=== PATIENT | male | born 1940 | race Caucasian/White ===

== ENCOUNTER 2017-08-06 07:29 | Emergency (ER) | payer MEDICARE, BC ==
[2017-08-06 07:55] VITALS: BP 135/77
--- NOTE | 2017-08-06 08:59 | EDM.PDOC ---
ED HPI GENERAL MEDICAL PROBLEM - General Chief Complaint: ENT Problem Stated Complaint: FACIAL INJURIES Time Seen by Provider: 08/06/17 08:42 Source of Information: Reports: Patient History Limitations: Reports: No Limitations - History of Present Illness INITIAL COMMENTS - FREE TEXT/NARRATIVE: The patient states that he got up to get a drink of water, went to the kitchen, drank his water, then as he was exiting, fell, around 03:30 this morning. He states that he found himself on the carpeted floor in a prone position with a sore nose, an abrasion to his face, and bilateral rib pain. He states that his neck is sore, but he has no tingling, numbness, or weakness anywhere. He has a slight headache. He states that he does not know how he fell. He doesn't believe that he tripped , but he states that he had no symptoms such as lightheadedness or vertigo prior to the fall. No prior similar symptoms. The patient's PCP is Rahel Jason. Chest Pain Score (Numeric/FACES): 6 - Related Data Allergies Allergy/AdvReac Type Severity Reaction Status Date / Time No Known Allergies Allergy Verified 04/03/15 11:41 Home Meds: Home Meds Cholecalciferol (Vitamin D3) [D3-2000] 1,000 mg PO DAILY 09/06/14 [History] Dicyclomine [Bentyl] 20 mg PO DAILY PRN 09/06/14 [History] Glimepiride 4 mg PO DAILY PRN 09/06/14 [History] Hydrochlorothiazide 12.5 mg PO DAILY 09/06/14 [History] Metoprolol Tartrate [Lopressor] 50 mg PO BID 09/06/14 [History] Multivitamin with Minerals [Multiple Vitamin] 1 tab PO DAILY 09/06/14 [History] amLODIPine [Norvasc] 5 mg PO DAILY 09/06/14 [History] atorvaSTATin [Lipitor] 40 mg PO DAILY 09/06/14 [History] metFORMIN [Glucophage] 500 mg PO DAILY 09/06/14 [History] Albuterol Sulfate [Proair Respiclick] 90 mcg IH Q4HR PRN 12/18/14 [History] Aspirin [Halfprin] 81 mg PO DAILY 12/18/14 [History] Ferrous Sulfate 325 mg PO WITHBREAKFAST 12/18/14 [History] Insulin Glargine,Hum.Rec.Anlog [Lantus Solostar] 23 units SQ BEDTIME 12/18/14 [ History] Linagliptin [Tradjenta] 5 mg PO QAM 12/18/14 [History] Losartan [Cozaar] 100 mg PO QAM 12/18/14 [History] Fish Oil/[place]-3 Fatty Acids [Fish Oil] 1,000 each PO DAILY 12/20/14 [History] Past Medical History HEENT History: Reports: Allergic Rhinitis, Impaired Vision Cardiovascular History: Reports: CAD, High Cholesterol, Hypertension Respiratory History: Reports: Asthma Gastrointestinal History: Reports: Diverticulosis, GERD Genitourinary History: Reports: Chronic Renal Insuffiency, Renal Calculus Musculoskeletal History: Reports: Arthritis Psychiatric History: Reports: Depression Endocrine/Metabolic History: Reports: Diabetes, Type II, Obesity/BMI 30+ - Past Surgical History HEENT Surgical History: Reports: Oral Surgery ([place] teeth extraction), Tonsillectomy Cardiovascular Surgical History: Reports: Coronary Artery Bypass (x 6 vessels, ), Coronary Artery Stent GI Surgical History: Reports: Colonoscopy Musculoskeletal Surgical History: Reports: Arthroscopic Knee (right), Carpal Tunnel (right) Social & Family History - Tobacco Use Smoking Status *Q: Never Smoker Second Hand Smoke Exposure: No - Caffeine Use Caffeine Use: Reports: None - Alcohol Use Alcohol Use History: Yes Alcohol Use Frequency: Rarely - Recreational Drug Use Recreational Drug Use: No - Living Situation & Occupation Living situation: Reports: , with Family (Son) Occupation: Retired ED ROS GENERAL - Review of Systems Review Of Systems: ROS reveals no pertinent complaints other than HPI. ED EXAM, GENERAL - Physical Exam Exam: See Below Exam Limited By: No Limitations General Appearance: Alert, WD/WN, No Apparent Distress Eye Exam: Bilateral Eye: EOMI, Normal Inspection, PERRL Ears: Normal External Exam, Normal Canal, Hearing Grossly Normal, Normal TMs Nose: Normal Inspection, Nasal Tenderness, Nasal Swelling, Other (Dried blood both nostrils. No septal hematoma.). No: Nasal Deformity Throat/Mouth: Normal Inspection, Normal Lips, Normal Voice, No Airway Compromise Head: Atraumatic, Normocephalic Neck: Other (Cervical collar placed early in patients ED visit) Respiratory/Chest: No Respiratory Distress, Lungs Clear, Normal Breath Sounds, No Accessory Muscle Use, Other (tenderness to palpation of the bilateral lateral chest. No palpable crepitus.). No: Crackles, Rhonchi, Wheezing, Pleural Rub Cardiovascular: Normal Peripheral Pulses, Regular Rate, Rhythm, No Gallop, No JVD, No Murmur, No Rub Peripheral Pulses: 3+: Radial (L), Radial (R) GI/Abdominal: Normal Bowel Sounds, Soft, Non-Tender, No Organomegaly, No Distention, No Abnormal Bruit, No Mass, Other (Obese) (Male) Exam: Deferred Rectal (Males) Exam: Deferred Back Exam: Normal Inspection, Full Range of Motion, NT Extremities: Normal Inspection, Normal Range of Motion, Normal Capillary Refill , Other (Trace pretibial edema bilaterally. Hyperpigmentation of both legs, consistent with chronic venous stasis changes, noted.) Neurological: Alert, Oriented, CN II-XII Intact, Normal Cognition, No Motor/ Sensory Deficits Psychiatric: Normal Affect Skin Exam: Warm, Dry, Intact, Normal Color, No Rash EKG INTERPRETATION EKG Date: 08/06/17 Time: 10:35 Rhythm: NSR Rate (Beats/Min): 69 [place]: Normal P-Wave: Present QRS: Normal ST-T: Normal QT: Normal Comparison: No Change (09/06/2014) Course - Vital Signs Last Recorded V/S: Last Vital Signs Temp 36.4 C 08/06/17 07:50 Pulse 67 08/06/17 07:50 Resp 22 H 08/06/17 07:50 BP 135/77 08/06/17 07:50 Pulse Ox 95 08/06/17 07:50 Orthostatic Blood Pressure [ 119/71 Standing] Orthostatic Blood Pressure [ 132/73 Supine] - Orders/Labs/Meds Labs: Laboratory Tests 08/06/17 08/06/17 08/06/17 Range/Units 10:50 10:50 10:50 WBC 18.23 H (4.23-9.07) K/mm3 RBC 5.00 (4.63-6.08) M/mm3 Hgb 15.0 (13.7-17.5) gm/L Hct 44.1 (40.1-51.0) % MCV 88.2 (79.0-92.2) fl MCH 30.0 (25.7-32.2) pg MCHC 34.0 (32.2-35.5) g/dl RDW Std Deviation 45.9 H (35.1-43.9) fL Plt Count 301 (163-337) K/mm3 MPV 9.8 (9.4-12.3) fl Neutrophils % (Manual) 85 H (40-60) % Band Neutrophils % 0 (0-10) % Lymphocytes % (Manual) 11 L (20-40) % Atypical Lymphs % 0 % Monocytes % (Manual) 3 (2-10) % Eosinophils % (Manual) 1 (0.8-7.0) % Basophils % (Manual) 0 L (0.2-1.2) Platelet Estimate Adequate RBC Morph Comment Normal PT 10.7 (9.5-12.1) SECONDS INR 0.98 APTT 25 (24-31) SECONDS D-Dimer, Quantitative 1.35 H (0.19-0.50) mg/L Sodium 132 L (136-145) mEq/L Potassium 4.9 (3.5-5.1) mEq/L Chloride 95 L (98-107) mEq/L Carbon Dioxide 28 (21-32) mEq/L Anion Gap 13.9 (5-15) BUN 43 H (7-18) mg/dL Creatinine 2.0 H (0.7-1.3) mg/dL Est Cr Clr Drug Dosing 32.44 mL/min Estimated GFR (MDRD) 33 (>60) mL/min BUN/Creatinine Ratio 21.5 H (14-18) Glucose 474 H (83-115) mg/dL Calcium 9.4 (8.5-10.1) mg/dL Magnesium 2.1 (1.8-2.4) mg/dl Total Bilirubin 0.4 (0.2-1.0) mg/dL AST 37 (15-37) U/L ALT 59 (16-63) U/L Alkaline Phosphatase 107 (46-116) U/L Troponin I < 0.017 (0.00-0.056) ng/mL Total Protein 7.6 (6.4-8.2) g/dl Albumin 3.2 L (3.4-5.0) g/dl Globulin 4.4 gm/dL Albumin/Globulin Ratio 0.7 L (1-2) - Re-Assessments/Exams Free Text/Narrative Re-Assessment/Exam: 08/06/17 08:58 As the patient is complaining of neck pain and a slight headache, and does not know the mechanism of his fall, I have asked the nurse to place a cervical collar. In the meantime, I have ordered a CT scan of the patient's head and cervical spine, along with a chest radiograph. 08/06/17 09:05 2-view chest radiograph reviewed. Cardiac silhouette is within normal limits. No pulmonary vascular congestion. No pleural effusion seen. No focal infiltrate , however, there does appear to be atelectasis at the left base. No rib fractures identified. No pneumothorax. Sternotomy wires and cardiac clips incidentally noted. Formal read per the Radiologist pending. 08/06/17 09:40 CT of the head without contrast is read by Dr. Mock as: 1. Sinus disease as noted above suspicious for acute sinusitis. 2. Nasal bone fracture with mild displacement. Please correlate if patient has acute symptoms or whether this is chronic. 3. Senescent change as noted above. 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 4. No acute intracranial abnormality is identified. CT of thcervical spineut contrast is read by Dr. Mock as: 1. Degenerative change as noted above. Nothing acute is seen on CT study of the cervical spine. 08/06/17 10:32 The patient's neck was examined. He has no tenderness to palpation, and no pain is elicited with FROM. The cervical collar was removed. The cause of his syncope , however, is still unclear, therefore I have added bloodwork, an ECG, and orthostatic blood pressure measurements. 08/06/17 11:35 The patient is not orthostatic. 08/06/17 12:47 Test results discussed with the patient. The patient's BUN/Cr are elevated at 43 /2.0, which is chronic when compared to prior chemistry panels, and is likely responsible for his modestly elevated D-dimer of 1.35. His blood glucose is elevated at 474. I offered to treat him with insulin, however, the patient would prefer to do that on his own, at home. His WBC count is elevated at 18.23 , but with 0% bandemia, and no sign of an infection was found. This appears to represent demargination. The remainder of the patient's workup is negative, and does not explain the cause of his syncope. I will discharge him home with a referral to the ENT Dr. Jones, for reevaluation of his nasal fracture, in about 1-2 weeks. Departure - Departure Time of Disposition: 12:50 Disposition: Home, Self-Care 01 Condition: Fair Clinical Impression: Syncope, Nasal bone fracture, Hyperglycemia due to type 2 diabetes mellitus, Chronic kidney disease, Chest wall contusion - Discharge Information Instructions: Nasal Fracture, [id number], Hyperglycemia, [id number], Syncope, [id number] Referrals: Rahel Jason NP [Primary Care Provider] - Amador Jones MD [Ordering Only Provider] - Forms: ED Department Discharge Additional Instructions: You were seen in the emergency room after passing out at home, falling onto the floor. Workup in the ER included blood work, a chest x-ray, a CT scan of your head, a CT scan of your cervical spine, positional blood pressure checks, and an ECG. Your workup found that you have a broken nose, and your blood sugar was elevated at 474. The remainder of your workup was unremarkable, and does not explain the cause of your passing out. No broken ribs were found. You do not have a blood clot in your lungs. You have not suffered a heart attack. You are not dry. You are not anemic. No significant electrolyte abnormalities were found. You were offered insulin for your blood sugar, but you declined. No treatment of your broken nose is indicated today, however, we do recommend that you follow-up with the Ear, Nose, and Throat Dr. Amador Jones in 1-2 weeks, for reevaluation and possible setting of your nose bones. Take [id number] ibuprofen, 2-3 tablets (400-600 mg) every 8 hours, as needed for pain. If any other problems, please do not hesitate to return to the ER.
--- NOTE | 2017-08-06 09:29 | CT ---
CT cervical spine Technique: Multiple axial sections were obtained from above C1 inferiorly to the top of T2. Reconstructed sagittal and coronal images were reviewed. Comparison: No prior cervical spine imaging. Findings: Severe disc space narrowing is noted at C5-6 and C6-7. Posterior osteophytes are seen as well as mild anterior osteophytes at both these levels. Degenerative change is noted within the uncovertebral joints at both these levels. Other disc spaces are preserved. Degenerative change noted between the dens and anterior arch of C1. Posterior skull base is intact. Mild left-sided neural foraminal stenosis is noted at C5-6 with moderate right-sided neural foraminal stenosis being seen at this same level. Other neural foramina are felt to be patent. No fracture or abnormal subluxation is seen. Mild scattered degenerative changes noted throughout the apophyseal joints. Minimal scoliosis is noted. Impression: 1. Degenerative change as noted above. Nothing acute is seen on CT study of the cervical spine. Diagnostic code #2
--- NOTE | 2017-08-06 09:33 | CT ---
Head CT Technique: Multiple axial sections through the brain were obtained. Intravenous contrast was not utilized. Comparison: Prior head CT exam of 09/06/14. Findings: Old appearing infarct is noted within the right posterior occipital region which is an interval change from previous exam. Ventricles along with basal cisterns and sulci over the convexities are mildly prominent. Minimal diminished density is noted within portions of the periventricular white matter which is compatible with small vessel ischemic demyelination change. No other abnormal parenchymal densities are seen. No evidence of intracranial hemorrhage. No midline shift or mass effect is seen. Air-fluid level is seen within the left maxillary sinus. Mild mucosal thickening is seen inferiorly within the right maxillary sinus as well as moderate mucosal thickening within the ethmoid and frontal sinuses. Air-fluid level seen within the sphenoid sinus. No acute calvarial abnormality is identified. Nasal bone fracture is seen showing mild displacement. Impression: 1. Sinus disease as noted above suspicious for acute sinusitis. 2. Nasal bone fracture with mild displacement. Please correlate if patient has acute symptoms or whether this is chronic. 3. Senescent change as noted above. 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 4. No acute intracranial abnormality is identified. Diagnostic code #3
--- NOTE | 2017-08-06 10:39 | CR ---
Chest: Two views of the chest are obtained. Comparison: Prior chest x-ray of 02/19/17. Heart size appears within normal limits. Tortuous thoracic aorta is seen. Mild left basilar atelectasis is seen. No acute pulmonary densities are otherwise seen. Bony structures are grossly intact. Previous sternotomy is noted. Impression: 1. Slight left basilar atelectasis. Nothing acute is otherwise seen. Diagnostic code #2
== END 2017-08-06 13:08 | disposition home or self-care (01) ==
LOC: JD.ED 07:29
DX: S02.2XXA Fracture of nasal bones, initial encounter for closed fracture (principal); R55 Syncope and collapse; S20.212A Contusion of left front wall of thorax, initial encounter; S20.211A Contusion of right front wall of thorax, initial encounter; I12.9 Hypertensive chronic kidney disease with stage 1 through stage 4 chronic kidney disease, or unspecified chronic kidney disease; N18.9 Chronic kidney disease, unspecified; E11.22 Type 2 diabetes mellitus with diabetic chronic kidney disease; E66.9 Obesity, unspecified; E11.65 Type 2 diabetes mellitus with hyperglycemia; W19.XXXA Unspecified fall, initial encounter
CPT/HCPCS: 36415; 70450; 70450-26; 71046; 71046-26; 72125; 72125-26; 80053; 83735; 84484; 85007; 85027; 85379; 85610; 85730; 93005; 99284-25

== ENCOUNTER 2019-11-21 13:47 | Emergency (ER) | payer MEDICARE, BC ==
[2019-11-21] MEDS ORDERED: Sodium Chloride 0.9% 10 ML Syringe FLUSH PRN (14:25)
--- NOTE | 2019-11-21 14:57 | EDM.PDOC ---
ED HPI GENERAL MEDICAL PROBLEM - General Chief Complaint: Neuro Symptoms/Deficits Stated Complaint: POSS STROKE Time Seen by Provider: 11/21/19 14:16 Source of Information: Reports: Patient History Limitations: Reports: No Limitations - History of Present Illness INITIAL COMMENTS - FREE TEXT/NARRATIVE: The patient presents for possible stroke. Today he was on the phone with his daughter and he was confused. He could not find the right word to say or he said the wrong word. This lasted about 45 minutes and he is back to his normal now. He has a mild headache now. He has no history of CVA. He did have an MN in the past with stents and they a CABG. He has no fever, chills, cough, congestion, runny nose, ches pain, shortness of breath, abdominal pain, nausea or vomiting. He also said when this happened he had some dizziness with it. Onset: Sudden Duration: Hour(s): Location: Reports: Head Quality: Reports: Ache Severity: Mild Improves with: Reports: None Worsens with: Reports: None Associated Symptoms: Reports: Headaches. Denies: Chest Pain, Cough, Fever/Chills, Nausea/Vomiting, Shortness of Breath Headache Pain Score (Numeric/FACES): 3 - Related Data Allergies Allergy/AdvReac Type Severity Reaction Status Date / Time Penicillins Allergy Cannot Verified 11/21/19 14:07 Remember Home Meds: Home Meds Cholecalciferol (Vitamin D3) [D3-2000] 1,000 mg PO DAILY 09/06/14 [History] Dicyclomine [Bentyl] 20 mg PO DAILY PRN 09/06/14 [History] Glimepiride 4 mg PO DAILY PRN 09/06/14 [History] Hydrochlorothiazide 12.5 mg PO DAILY 09/06/14 [History] Metoprolol Tartrate [Lopressor] 50 mg PO BID 09/06/14 [History] Multivitamin with Minerals [Multiple Vitamin] 1 tab PO DAILY 09/06/14 [History] amLODIPine [Norvasc] 5 mg PO DAILY 09/06/14 [History] atorvaSTATin [Lipitor] 40 mg PO DAILY 09/06/14 [History] metFORMIN [Glucophage] 500 mg PO DAILY 09/06/14 [History] Albuterol Sulfate [Proair Respiclick] 90 mcg IH Q4HR PRN 12/18/14 [History] Aspirin [Halfprin] 81 mg PO DAILY 12/18/14 [History] Ferrous Sulfate 325 mg PO WITHBREAKFAST 12/18/14 [History] Insulin Glargine,Hum.Rec.Anlog [Lantus Solostar] 23 units SQ BEDTIME 12/18/14 [History] Linagliptin [Tradjenta] 5 mg PO QAM 12/18/14 [History] Losartan [Cozaar] 100 mg PO QAM 12/18/14 [History] Fish Oil/[place]-3 Fatty Acids [Fish Oil] 1,000 each PO DAILY 12/20/14 [History] Clopidogrel Bisulfate [Plavix] 75 mg PO DAILY #30 tablet 11/21/19 [Rx] Past Medical History HEENT History: Reports: Allergic Rhinitis, Impaired Vision Cardiovascular History: Reports: CAD, High Cholesterol, Hypertension Respiratory History: Reports: Asthma Gastrointestinal History: Reports: Diverticulosis, GERD Genitourinary History: Reports: Chronic Renal Insuffiency, Renal Calculus Musculoskeletal History: Reports: Arthritis Psychiatric History: Reports: Depression Endocrine/Metabolic History: Reports: Diabetes, Type II, Obesity/BMI 30+ - Infectious Disease History Infectious Disease History: Reports: None - Past Surgical History HEENT Surgical History: Reports: Oral Surgery, Tonsillectomy Cardiovascular Surgical History: Reports: Coronary Artery Bypass, Coronary Artery Stent Other Cardiovascular Surgeries/Procedures: bypass x6 GI Surgical History: Reports: Colonoscopy Musculoskeletal Surgical History: Reports: Arthroscopic Knee, Carpal Tunnel Social & Family History - Tobacco Use Smoking Status *Q: Never Smoker Second Hand Smoke Exposure: No - Caffeine Use Caffeine Use: Reports: None - Recreational Drug Use Recreational Drug Use: No - Living Situation & Occupation Living situation: Reports: , with Family (Son) Occupation: Retired ED ROS GENERAL - Review of Systems Review Of Systems: See Below Constitutional: Reports: No Symptoms HEENT: Reports: No Symptoms Respiratory: Reports: No Symptoms Cardiovascular: Reports: No Symptoms Endocrine: Reports: No Symptoms GI/Abdominal: Reports: No Symptoms : Reports: No Symptoms Musculoskeletal: Reports: No Symptoms Skin: Reports: No Symptoms Neurological: Reports: Dizziness, Headache ED EXAM, NEURO - Physical Exam Exam: See Below Exam Limited By: No Limitations General Appearance: Alert, No Apparent Distress Ears: Normal External Exam Head Exam: Atraumatic, Normocephalic Neck: Normal Inspection Respiratory/Chest: No Respiratory Distress, Lungs Clear, Normal Breath Sounds Cardiovascular: Regular Rate, Rhythm, No Edema, No Murmur GI/Abdominal: Soft, Non-Tender, No Organomegaly Neurological: Alert, No Motor/Sensory Deficits, Oriented x 3 EKG INTERPRETATION EKG Date: 11/21/19 Time: 14:36 Rhythm: NSR Rate (Beats/Min): 80 [place]: Normal P-Wave: Present QRS: Normal ST-T: Normal QT: Normal Course - Vital Signs Last Recorded V/S: Last Vital Signs Temp 98.2 F 11/21/19 14:04 Pulse 81 11/21/19 14:04 Resp 16 11/21/19 14:04 BP 180/82 H 11/21/19 14:04 Pulse Ox 98 11/21/19 14:04 - Orders/Labs/Meds Orders: Active Orders 24 hr Category Date Time Status Cardiac Monitoring [RC] . DIRECTED Care 11/21/19 14:25 Active EKG Documentation Completion [RC] STAT Care 11/21/19 14:26 Active Peripheral IV Care [RC] . DIRECTED Care 11/21/19 14:26 Active Sodium Chloride 0.9% [Saline Flush] Med 11/21/19 14:25 Active 10 ml FLUSH ASDIRECTED PRN Peripheral IV Insertion Adult [OM.PC] Stat Oth 11/21/19 14:25 Ordered Medication Orders Sodium Chloride (Saline Flush) 10 ml FLUSH ASDIRECTED PRN PRN Reason: Keep Vein Open Last Admin: 11/21/19 14:30 Dose: 10 ml Documented by: ADELIA Labs: Laboratory Tests 11/21/19 11/21/19 11/21/19 Range/Units 14:03 14:06 14:06 WBC 11.14 H (4.23-9.07) K/mm3 RBC 4.94 (4.63-6.08) M/mm3 Hgb 14.8 (13.7-17.5) gm/dl Hct 44.5 (40.1-51.0) % MCV 90.1 (79.0-92.2) fl MCH 30.0 (25.7-32.2) pg MCHC 33.3 (32.2-35.5) g/dl RDW Std Deviation 47.4 H (35.1-43.9) fL Plt Count 251 (163-337) K/mm3 MPV 9.9 (9.4-12.3) fl Neut % (Auto) 77.5 H (34.0-67.9) % Lymph % (Auto) 10.9 L (21.8-53.1) % [place] % (Auto) 8.9 (5.3-12.2) % Eos % (Auto) 1.8 (0.8-7.0) Baso % (Auto) 0.4 (0.1-1.2) % Neut # (Auto) 8.64 H (1.78-5.38) K/mm3 Lymph # (Auto) 1.21 L (1.32-3.57) K/mm3 [place] # (Auto) 0.99 H (0.30-0.82) K/mm3 Eos # (Auto) 0.20 (0.04-0.54) K/mm3 Baso # (Auto) 0.04 (0.01-0.08) K/mm3 Manual Slide Review Abnormal smear Sodium 134 L (136-145) mEq/L Potassium 4.9 (3.5-5.1) mEq/L Chloride 100 (98-107) mEq/L Carbon Dioxide 26 (21-32) mEq/L Anion Gap 12.9 (5-15) BUN 25 H D (7-18) mg/dL Creatinine 2.0 H (0.7-1.3) mg/dL Est Cr Clr Drug Dosing 28.98 mL/min Estimated GFR (MDRD) 32 (>60) mL/min BUN/Creatinine Ratio 12.5 L (14-18) Glucose 225 H (83-115) mg/dL POC Glucose 222 H (83-110) mg/dL Calcium 9.1 (8.5-10.1) mg/dL Magnesium 1.9 (1.8-2.4) mg/dl Total Bilirubin 0.5 (0.2-1.0) mg/dL AST 10 L (15-37) U/L ALT 22 (16-63) U/L Alkaline Phosphatase 87 (46-116) U/L Troponin I < 0.017 (0.00-0.056) ng/mL Total Protein 7.0 (6.4-8.2) g/dl Albumin 3.3 L (3.4-5.0) g/dl Globulin 3.7 gm/dL Albumin/Globulin Ratio 0.9 L (1-2) Meds: Medications Generic Name Dose Route Start Last Admin Trade Name Ryne PRN Reason Stop Dose Admin Sodium Chloride 10 ml 11/21/19 14:25 11/21/19 14:30 Saline Flush FLUSH 10 ml ASDIRECTED PRN Administration Keep Vein Open Discontinued Medications Generic Name Dose Route Start Last Admin Trade Name Freq PRN Reason Stop Dose Admin Clopidogrel Bisulfate 75 mg 11/21/19 15:56 Plavix PO 11/21/19 15:57 ONETIME ONE - Re-Assessments/Exams Free Text/Narrative Re-Assessment/Exam: 11/21/19 16:00 I ordered an IV saline lock, EKG, CT of his head and labs. His EKG shows a NSR with no acute changes. His CT shows senescent changes. No acute intracranial abnormality is appreciated. No significant change is appreciated when compared to prior noncontrast head CT exam. His WBC is elevated at 11.14. His Na is 134. His creatinine is elevated at 2. His glucose is elevated at 225. His troponin is negative. He is back at baseline now. I called Dr Waters the neurologist distribution center administrator at [facility] in [place] and he recommended plavix, MRI of brain, carotid US and echocardiogram. I have put in those orders. Departure - Departure Time of Disposition: 16:05 Disposition: Home, Self-Care 01 Condition: Good Clinical Impression: TIA (transient ischemic attack) Qualifiers: Transient cerebral ischemia type: unspecified Qualified Code(s): G45.9 - Transient cerebral ischemic attack, unspecified - Discharge Information *PRESCRIPTION DRUG MONITORING PROGRAM REVIEWED*: Not Applicable *COPY OF PRESCRIPTION DRUG MONITORING REPORT IN PATIENT SONIA: Not Applicable Prescriptions: Clopidogrel Bisulfate [Plavix] 75 mg PO DAILY #30 tablet Referrals: Rahel Jason, PULMONARY CARE NURSE [Primary Care Provider] - 3 Days Forms: ED Department Discharge Additional Instructions: Take your medications as prescribed. I have added plavix. This is a blood thinner that will prevent you from having a stroke. I have also ordered an MRI of your brain, ultrasound of your neck and heart. Someone from our radiology department will call you and make an appointment. Follow up with Rahel within a few days. Please return if you are worse. Sepsis Event Note (ED) - Evaluation Sepsis Screening Result: No Definite Risk - Focused Exam Vital Signs: Vital Signs Temp Pulse Resp BP Pulse Ox 11/21/19 14:04 98.2 F 81 16 180/82 H 98 - My Orders Last 24 Hours: My Active Orders 11/21/19 14:25 Cardiac Monitoring [RC] . DIRECTED Sodium Chloride 0.9% [Saline Flush] 10 ml FLUSH ASDIRECTED PRN Peripheral IV Insertion Adult [OM.PC] Stat 11/21/19 14:26 EKG Documentation Completion [RC] STAT Peripheral IV Care [RC] . DIRECTED - Assessment/Plan Last 24 Hours: My Active Orders 11/21/19 14:25 Cardiac Monitoring [RC] . DIRECTED Sodium Chloride 0.9% [Saline Flush] 10 ml FLUSH ASDIRECTED PRN Peripheral IV Insertion Adult [OM.PC] Stat 11/21/19 14:26 EKG Documentation Completion [RC] STAT Peripheral IV Care [RC] . DIRECTED
--- NOTE | 2019-11-21 15:21 | CT ---
Head CT Technique: Multiple axial sections through the brain were obtained. Intravenous contrast was not utilized. Comparison: Prior head CT study of 08/06/17. Findings: Ventricles along with basal cisterns and sulci are the convexities are mildly prominent. 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 No other abnormal parenchymal densities are seen. No evidence of intracranial hemorrhage. No midline shift or mass-effect is seen. Atherosclerotic calcification is seen within the carotid siphon and within the vertebral vessels. Bone window settings were reviewed. No acute calvarial finding is seen. Visualized paranasal sinuses and visualized mastoid sinuses show nothing acute. Impression: 1. Senescent change as described above. No acute intracranial abnormality is appreciated. 2. No significant change is appreciated when compared to prior noncontrast head CT exam. Diagnostic code #2 This report was dictated in MDT
[2019-11-21] MEDS ORDERED: Clopidogrel 75 MG Tab PO ONE (15:56)
[2019-11-21 16:23] VITALS: BP 172/89; PULSE 72
== END 2019-11-21 16:20 | disposition home or self-care (01) ==
LOC: JD.ED 13:47
DX: G45.9 Transient cerebral ischemic attack, unspecified (principal); E11.9 Type 2 diabetes mellitus without complications; F32.9 Major depressive disorder, single episode, unspecified; M19.90 Unspecified osteoarthritis, unspecified site; J45.909 Unspecified asthma, uncomplicated; K21.9 Gastro-esophageal reflux disease without esophagitis; E78.00 Pure hypercholesterolemia, unspecified; E66.9 Obesity, unspecified; I10 Essential (primary) hypertension; Z79.4 Long term (current) use of insulin; Z79.82 Long term (current) use of aspirin; Z79.899 Other long term (current) drug therapy; Z88.0 Allergy status to penicillin; Z68.41 Body mass index [BMI] 40.0-44.9, adult
CPT/HCPCS: 36415; 70450; 80053; 82962; 83735; 84484; 85025; 93005; 99285; A9270; 93010; 99284

== ENCOUNTER 2024-01-14 20:06 | Emergency (ER) | payer BC, MEDICARE ==
[2024-01-14 20:57] LABS: BASOPHILS ABSOLUTE AUTO 0.1 K/mm3 (0.0-0.2); BASOPHILS PERCENT AUTO 0.4 % (0.0-1.0); EOSINOPHILS PERCENT AUTO 0.1 % (0.0-6.0); HEMATOCRIT 43.7 % (42.0-52.0); HEMOGLOBIN 14.3 gm/dl (14.0-18.0); IMMATURE GRAN ABSOLUTE AUTO 0.06 K/mm3 (0.00-0.05); IMMATURE GRAN PERCENT AUTO 0.3 % (0.0-0.4); LYMPHOCYTES ABSOLUTE AUTO 1.1 K/mm3 (1.0-4.8); LYMPHOCYTES PERCENT AUTO 6.2 % (24.0-44.0); MEAN CORPUSCULAR HEMOGLOBIN 29.7 pg (28.0-32.0); MEAN CORPUSCULAR HGB CONC 32.7 g/dl (32.0-36.0); MEAN CORPUSCULAR VOLUME 90.9 fl (83.0-99.0); MONOCYTES PERCENT AUTO 10.9 % (0.0-8.0); NEUTROPHILS ABSOLUTE AUTO 14.8 K/mm3 (1.8-7.7); NEUTROPHILS PERCENT AUTO 82.1 % (41.0-71.0); PLATELET COUNT,PLT 221 K/mm3 (150-400); RED BLOOD CELL COUNT 4.81 M/mm3 (4.52-5.90); WHITE BLOOD CELL COUNT,WBC 17.96 K/mm3 (3.9-11.3)
[2024-01-14 21:15] LABS: INR 1.13; PROTHROMBIN TIME 11.9 SECONDS (9.7-12.0)
[2024-01-14 21:17] LABS: PTT,PARTIAL THROMBOPLSTIN TIME 26.6 SECONDS (21.7-31.4)
[2024-01-14 21:25] LABS: ALANINE AMINOTRANSFERASE,ALT 26 U/L (16-63); ALBUMIN 3.4 g/dl (3.4-5.0); ALKALINE PHOSPHATASE 71 U/L (46-116); ANION GAP 13.8 (5-15); ASPARTATE AMNIOTRANSFERASE,AST 48 U/L (15-37); BILIRUBIN TOTAL 0.9 mg/dL (0.2-1.0); BLOOD UREA NITROGEN,BUN 47 mg/dL (7-18); BUN/CREATININE RATIO 19.6 (14-18); CALCIUM 9.4 mg/dL (8.5-10.1); CARBON DIOXIDE,CO2 29 mEq/L (21-32); CHLORIDE,CL 108 mEq/L (98-107); CREATININE 2.4 mg/dL (0.7-1.3); ESTIMATED GFR 26 mL/min (>60); GLUCOSE RANDOM 173 mg/dL (70-99); POTASSIUM,K 4.8 mEq/L (3.5-5.1); PROTEIN TOTAL,TP 6.9 g/dl (6.4-8.2); SODIUM,NA 146 mEq/L (136-145)
[2024-01-14 21:36] LABS: TROPONIN I HIGH SENSITIVITY 84 pg/mL (<=76)
[2024-01-14] MEDS: Sodium Chloride 0.9% 10 ML Syringe FLUSH PRN (22:10)
[2024-01-14] MEDS: Sodium Chloride 0.9% 1,000 ML IV ONE (22:10)
[2024-01-15 00:52] VITALS: BP 134/56
[2024-01-15 01:01] VITALS: PULSE 93
== END 2024-01-14 23:45 ==
LOC: JD.ED 20:06
DX: I63.9 Cerebral infarction, unspecified (principal); I25.10 Atherosclerotic heart disease of native coronary artery without angina pectoris; J45.909 Unspecified asthma, uncomplicated; E78.00 Pure hypercholesterolemia, unspecified; I12.9 Hypertensive chronic kidney disease with stage 1 through stage 4 chronic kidney disease, or unspecified chronic kidney disease; N18.9 Chronic kidney disease, unspecified; E11.22 Type 2 diabetes mellitus with diabetic chronic kidney disease; E66.9 Obesity, unspecified; M19.90 Unspecified osteoarthritis, unspecified site; Z79.4 Long term (current) use of insulin; Z79.84 Long term (current) use of oral hypoglycemic drugs; Z79.82 Long term (current) use of aspirin; Z79.02 Long term (current) use of antithrombotics/antiplatelets; Z79.899 Other long term (current) drug therapy; Z88.0 Allergy status to penicillin
CPT/HCPCS: 36415; 70450; 70496; 70498; 80053; 82947; 84484; 85025; 85610; 85730; 93005; 96360; 96361; 99285; J3490; J7030